=== PATIENT | male | born 1990 | race African-American/Black ===

== ENCOUNTER 2017-03-19 08:16 | Emergency (ER) | payer SELFPAY ==
[~2017-03-19] VITALS: Ht 185.4 cm; Wt 93.0 kg
[~2017-03-19 08:16] MED LIST: ERYT333T19 PO; TUSSSUS PO
[2017-03-19 08:18] VITALS: BP 139/75; PULSE 62; RESP 20; TEMP 97.7; O2SAT 99
[2017-03-19] MEDS ORDERED: BENZ100 PO (08:32)
[2017-03-19] MEDS ORDERED: IBUP800T23 PO (08:32)
[2017-03-19] MEDS ORDERED: MOME17I EACH NARE (08:32)
--- NOTE | 2017-03-19 08:33 | PD ---
HPI Chief Complaint: Cold / Flu Symptoms Time Seen by Provider: 08:31 Travel History International Travel<30 days: No Contact w/Intl Traveler<30days: No Traveled to known affect area: No History of Present Illness HPI 26-year-old male presents to the emergency Department with complaint of nasal congestion, cough, throat irritation, bilateral ear pressure 3 days. Denies chest pain, chest tightness, shortness of breath. Says his chest feels tight when he coughs. Throat is more irritated with cough also. Denies fever, vomiting. Reports feeling chills yesterday. Has tried taking Tessalon and ibuprofen with minimal relief of symptoms. Has not taken any other medications or tried any other treatments to alleviate his symptoms. Is also requesting a note to return back to work. Has no known allergies. No other medical complaints. No other modifying factors or associated signs and symptoms. PFSH Social History Alcohol Use: Yes (SOCIALLY) Tobacco Use: Yes (PPD) Allergies-Medications (Allergen,Severity, Reaction): Coded Allergies: No Known Allergies (Verified , 07/14/10) Reported Meds & Prescriptions Reported Meds & Active Scripts Active Ibuprofen 800 Mg Tab 800 Mg PO Q6HR PRN Tessalon Perles (Benzonatate) 100 Mg Cap 100 Mg PO TID PRN Nasonex Nasal [place] (Mometasone Furoate) 50 Mcg/Act Naspr 2 [place] EACH NARE DAILY PRN Ramon-Tab (Erythromycin) 333 Mg Tabec 333 Mg PO TID Tussionex (Chlorphenir/Hydrocodone Polistirex) Liqcr 5 Ml PO BIDPRN Review of Systems Except as stated in HPI: all other systems reviewed are Neg Physical Exam Narrative GENERAL: Well-nourished, well-developed male patient, in no acute distress; afebrile, nontoxic-appearing SKIN: Warm and dry. No rash. HEAD: Atraumatic. Normocephalic. EYES: Pupils equal and round. No scleral icterus. No injection or drainage. ENT: Mucosa pink and moist. No erythema or exudates. No uvular edema. No uvular , palatal, or tonsillar deviation. Airway patent. EARS: Bilateral pinnae and external canals appear within normal limits. Bilateral tympanic membranes without erythema, dullness or perforation. NECK: Trachea midline. No lymphadenopathy. CARDIOVASCULAR: Regular rate and rhythm. No murmur appreciated. RESPIRATORY: No accessory muscle use. Clear to auscultation. Breath sounds equal bilaterally. No retractions or tachypnea. GASTROINTESTINAL: Abdomen soft, non-tender, nondistended. Hepatic and splenic margins not palpable. Bowel sounds are active 4 quadrants. MUSCULOSKELETAL: No obvious deformities. No clubbing. No cyanosis. No edema. NEUROLOGICAL: Awake and alert. Oriented 3. No obvious cranial nerve deficits. Motor grossly within normal limits. Normal speech. Moves all extremities. 5/5 strength to all extremities. PSYCHIATRIC: Appropriate mood and affect; insight and judgment normal. Data Data Last Documented VS Vital Signs Date Time Temp Pulse Resp B/P Pulse Ox O2 Delivery O2 Flow Rate FiO2 03/19/17 08:18 97.7 62 20 139/75 99 Room Air [facility] Medical Decision Making Medical Screen Exam Complete: Yes Emergency Medical Condition: Yes Medical Record Reviewed: Yes Differential Diagnosis Viral illness, sinusitis, influenza Narrative Course 26-year-old male with cold/flu symptoms. Patient is afebrile and nontoxic- appearing. He denies fever, vomiting. I did offer to do an influenza screen and patient declined at this time. Work release provided. Ibuprofen, Tessalon Perles, Nasonex nasal spray prescribed for home. Discussed viral illness and symptom management. Patient verbalizes understanding and agreement with treatment plan. Patient is medically cleared and stable for discharge. Discussed reasons to return to the emergency department. Instructed patient to follow up with primary care provider. Patient agrees with treatment plan. The patients vital signs are stable and the patient is stable for outpatient follow- up and treatment. Patient discharged home, stable and in no acute distress. Diagnosis Primary Impression: Viral illness Referrals: Primary Care Physician Patient Instructions: Cold Symptoms (ED), General Instructions, Safe Use of Cough and Cold Medicines (ED) Departure Forms: Tests/Procedures, Work Release Enter return to work date: Mar 22, 2017 Additional Instructions: Ibuprofen or Tylenol as instructed and as needed for fever/pain [id number] cough and cold medications as directed and as needed for symptom management Get plenty of sleep/rest Drink plenty of fluids to prevent dehydration; popsicles and Gatorade Use an air humidifier/turn off ceiling fans Follow-up with primary care provider Return immediately to the emergency department with worsening of symptoms Med/Other Pt SpecificInfo: Prescription(s) given Scripts Ibuprofen 800 Mg [id number] Mg PO Q6HR PRN (PAIN) #30 TAB Ref 0 Prov:Pauly Obrien 03/19/17 Benzonatate (Tessalon Perles)100 Mg [id number] Mg PO TID PRN (COUGH) #10 CAP Ref 0 Prov:Pauly Obrien 03/19/17 Mometasone Nasal [place] (Nasonex Nasal [place])50 Mcg/Act Naspr2 [place] EACH NARE DAILY PRN (NASAL CONGESTION) #1 BOTTLE Ref 0 Prov:Pauly Obrien 03/19/17 Disposition: 01 DISCHARGE HOME Condition: Stable Pauly Obrien Mar 19, 2017 08:33
== END 2017-03-19 09:03 | disposition home or self-care (01) ==
LOC: NEPK 08:16
DX: B34.9 Viral infection, unspecified (principal); F17.210 Nicotine dependence, cigarettes, uncomplicated
CPT/HCPCS: 99284

== ENCOUNTER 2017-07-12 13:34 | Emergency (ER) | payer SELFPAY ==
[~2017-07-12 13:34] MED LIST changes: +BENZ100 PO; +IBUP800T23 PO; +MOME17I EACH NARE
[2017-07-12 13:36] VITALS: BP 169/78; PULSE 85; RESP 12; TEMP 97.8; O2SAT 97
--- NOTE | 2017-07-12 13:46 | PD ---
Physical Exam Time Seen by Provider: 13:44 Narrative Pt presents for evaluation of epigastric pain 2-3 days, severe at times. Nausea with one episode of vomiting, frothy white emesis. position helps relieve some of the pain. Today had two completely black stools. Never has had this before. Denies any significant medical history. ETOH2-3 times a week. No other symptoms to report. GENERAL: Well-nourished male patient, appears in no acute distress SKIN: Warm and dry. HEAD: Normocephalic. EYES: No scleral icterus. No injection or drainage. NECK: trachea midline. CARDIOVASCULAR: Regular rate RESPIRATORY: . No accessory muscle use. GASTROINTESTINAL: Abdomen nondistended. MUSCULOSKELETAL: No cyanosis, or edema. BACK:without obvious deformity. Data Data Last Documented VS Vital Signs Date Time Temp Pulse Resp B/P (MAP) Pulse Ox O2 Delivery O2 Flow Rate FiO2 07/12/17 13:36 97.8 85 12 169/78 (108) 97 Orders Orders Complete Blood Count With Diff (07/12/17 13:46) Comprehensive Metabolic Panel (07/12/17 13:46) Lipase (07/12/17 13:46) Prothrombin Time / Inr (Pt) (07/12/17 13:46) Act Partial Throm Time (Ptt) (07/12/17 13:46) Urinalysis - C+S If Indicated (07/12/17 13:46) Labs Laboratory Tests Test 07/12/17 14:10 White Blood Count 15.9 TH/MM3 Red Blood Count 4.84 MIL/MM3 Hemoglobin 15.0 GM/DL Hematocrit 44.4 % Mean Corpuscular Volume 91.7 FL Mean Corpuscular Hemoglobin 31.0 PG Mean Corpuscular Hemoglobin Concent 33.8 % Red Cell Distribution Width 14.8 % Platelet Count 396 TH/MM3 Mean Platelet Volume 7.2 FL Neutrophils (%) (Auto) 56.8 % Lymphocytes (%) (Auto) 18.4 % Monocytes (%) (Auto) 6.4 % Eosinophils (%) (Auto) 17.7 % Basophils (%) (Auto) 0.7 % Neutrophils # (Auto) 9.0 TH/MM3 Lymphocytes # (Auto) 2.9 TH/MM3 Monocytes # (Auto) 1.0 TH/MM3 Eosinophils # (Auto) 2.8 TH/MM3 Basophils # (Auto) 0.1 TH/MM3 CBC Comment DIFF FINAL Differential Comment Prothrombin Time 11.4 SEC Prothromb Time International Ratio 1.0 RATIO Activated Partial Thromboplast Time 27.4 SEC Urine Color YELLOW Urine Turbidity CLEAR Urine pH 6.0 Urine Specific [place] 1.035 Urine Protein TRACE mg/dL Urine Glucose (UA) NEG mg/dL Urine Ketones NEG mg/dL Urine Occult Blood SMALL Urine Nitrite NEG Urine Bilirubin NEG Urine Urobilinogen 2.0 MG/DL Urine Leukocyte Esterase NEG Urine RBC 3 /hpf Urine WBC LESS THAN 1 /hpf Urine Squamous Epithelial Cells <1 /hpf Urine Mucus MOD /lpf Microscopic Urinalysis Comment CULT NOT INDICATED Blood Urea Nitrogen 13 MG/DL Creatinine 0.84 MG/DL Random Glucose 84 MG/DL Total Protein 8.1 GM/DL Albumin 4.5 GM/DL Calcium Level 9.1 MG/DL Alkaline Phosphatase 72 U/L Aspartate Amino Transf (AST/SGOT) 23 U/L Alanine Aminotransferase (ALT/SGPT) 24 U/L Total Bilirubin 0.3 MG/DL Sodium Level 141 MEQ/L Potassium Level 4.0 MEQ/L Chloride Level 108 MEQ/L Carbon Dioxide Level 24.8 MEQ/L Anion Gap 8 MEQ/L Estimat Glomerular Filtration Rate 134 ML/MIN Lipase 126 U/L [facility] Medical Record Reviewed: Yes Supervised Visit with CITLALI: No Differential Diagnosis Pancreatitis versus gastritis versus cholecystitis versus gastroenteritis Narrative Course 27 year male presents to department for evaluation of abdominal pain, epigastric in nature, sharp, stabbing. Patient appears without distress here in triage. Lab work is ordered while patient awaits that placement. Diagnosis Primary Impression: Abdominal pain Qualified Codes: R10.13 - Epigastric pain Disposition: 07 AGAINST MEDICAL ADVICE Condition: Stable Lanny Daly MAU Jul 12, 2017 13:46
[2017-07-12 14:31] LABS: BASOPHIL # 0.1 TH/MM3 (0-0.2); BASOPHIL % 0.7 % (0.0-2.0); EOSINOPHIL # 2.8 TH/MM3 (0-0.4); EOSINOPHIL % 17.7 % (0.0-4.0); HEMATOCRIT 44.4 % (39.0-51.0); HEMO FLAGS DIFF FINAL; LYMPH % 18.4 % (9.0-44.0); LYMPHOCYTE # 2.9 TH/MM3 (1.0-4.8); MEAN CELL VOLUME 91.7 FL (80.0-100.0); MEAN CORPUSCULAR HGB CONC 33.8 % (32.0-36.0); MONO % 6.4 % (0.0-8.0); NEUT % 56.8 % (16.0-70.0); PLATELET COUNT 396 TH/MM3 (150-450); RED BLOOD COUNT 4.84 MIL/MM3 (4.50-5.90); RED CELL DISTRIBUTION WIDTH 14.8 % (11.6-17.2); WHITE BLOOD COUNT 15.9 TH/MM3 (4.0-11.0)
[2017-07-12 14:40] LABS: APTT (PATIENT) 27.4 SEC (24.3-30.1); PROTHROMBIN TIME - PATIENT 11.4 SEC (9.8-11.6)
[2017-07-12 14:41] LABS: BLOOD, URINE SMALL (NEG); COMMENT (UR) CULT NOT INDICATED; CULTURE IF INDICATED CULT NOT INDICATED; GLUCOSE,URINE NEG (NEG); KETONE, URINE NEG (NEG); MUCUS URINE MOD /lpf (OCC); NITRITE,URINE NEG (NEG); SQUAMOUS EPITHELIAL CELL URINE <1 /hpf (0-5); URINE COLOR YELLOW (YELLW/STRAW)
[2017-07-12 14:47] LABS: ALT (GPT) 24 U/L (12-78)
[2017-07-12 14:49] LABS: ALKALINE PHOSPHATASE 72 U/L (45-117); TOTAL BILIRUBIN ADULT 0.3 MG/DL (0.2-1.0)
[2017-07-12 15:41] LABS: ANION GAP 8 MEQ/L (5-15); AST (GOT) 23 U/L (15-37); BICARBONATE 24.8 MEQ/L (21.0-32.0); BLOOD UREA NITROGEN 13 MG/DL (7-18); CHLORIDE 108 MEQ/L (98-107); GLOMERULAR FILTRATION RATE 134 ML/MIN (>89); SODIUM (NA) 141 MEQ/L (136-145)
== END 2017-07-12 19:15 | disposition left against medical advice (07) ==
LOC: NED 13:34
DX: R10.13 Epigastric pain (principal); R11.2 Nausea with vomiting, unspecified
CPT/HCPCS: 80053; 81001; 83690; 85025; 85610; 85730; 99281; 99283